=== PATIENT | male | born 1995 | race Two or more races ===

== ENCOUNTER 2017-05-30 00:24 | Emergency (ER) | payer OTHER ==
[~2017-05-30] VITALS: Ht 170.2 cm; Wt 135.2 kg
== END 2017-05-30 13:10 | disposition home or self-care (01) ==
LOC: ER 00:24
DX: R00.2 Palpitations (principal); E03.8 Other specified hypothyroidism; D69.59 Other secondary thrombocytopenia

== ENCOUNTER 2020-10-08 08:31 | Emergency (ER) | payer OTHER ==
[~2020-10-08] VITALS: Ht 172.7 cm; Wt 138.3 kg
[~2020-10-08 08:31] MED LIST: NAPROXEN375 MG PO
[2020-10-08] MEDS ORDERED: LEXAPRO20 MG PO (08:42)
[2020-10-08] MEDS ORDERED: CLONAZEPAM1 MG PO (08:42)
[2020-10-08] MEDS ORDERED: LITHATE5 MG PO (08:42)
[2020-10-08] MEDS ORDERED: ZYPREXA5 MG PO (08:43)
[2020-10-08] MEDS ORDERED: AMBIEN10 MG PO (08:44)
[2020-10-08] MEDS ORDERED: ADDERALL 10 MG10 MG PO (08:44)
[2020-10-08] MEDS ORDERED: AZITHROMYCIN500 MG PO (12:05)
[2020-10-08] MEDS ORDERED: MEDROLPACK PO (12:05)
[2020-10-08] MEDS ORDERED: NAPROXEN375 MG PO (12:05)
[2020-10-08] MEDS ORDERED: MUCINEX DM ER1 EAC1 PO (12:05)
[2020-10-08] MEDS ORDERED: LEVSIN0.125 MG PO (12:08)
[2020-10-08] MEDS ORDERED: LEVALBUTER1.25 MG/3 IH (12:08)
[2020-10-08] MEDS ORDERED: INTESTINEX680 M1 PO (12:12)
== END 2020-10-08 12:15 | disposition home or self-care (01) ==
LOC: ER 08:31
DX: J02.8 Acute pharyngitis due to other specified organisms (principal); R05 Cough; R19.7 Diarrhea, unspecified; J06.9 Acute upper respiratory infection, unspecified; Z20.822 Contact with and (suspected) exposure to COVID-19

== ENCOUNTER 2021-01-31 04:03 | Emergency (ER) | payer OTHER ==
[~2021-01-31] VITALS: Ht 170.2 cm; Wt 131.1 kg
[~2021-01-31 04:03] MED LIST changes: +ADDERALL 10 MG10 MG PO; +AMBIEN10 MG PO; +AZITHROMYCIN500 MG PO; +CLONAZEPAM1 MG PO; +INTESTINEX680 M1 PO; +LEVALBUTER1.25 MG/3 IH; +LEVSIN0.125 MG PO; +LEXAPRO20 MG PO; +LITHATE5 MG PO; +MEDROLPACK PO; +MUCINEX DM ER1 EAC1 PO; +ZYPREXA5 MG PO
[2021-01-31] MEDS ORDERED: ALBUTEROL2.5 MG/3 M IH (07:37)
[2021-01-31] MEDS ORDERED: ZITHROMAX500 MG PO (07:37)
[2021-01-31] MEDS ORDERED: SYMBICORT 16010.2 GM IH (07:37)
[2021-01-31] MEDS ORDERED: ZYNCOF 20-400120 ML PO (07:37)
[2021-01-31] MEDS ORDERED: PROVENTIL HFA6.7 GM IH (07:37)
== END 2021-01-31 07:59 ==
LOC: ER 04:03
DX: R06.02 Shortness of breath (principal); Z20.822 Contact with and (suspected) exposure to COVID-19

== ENCOUNTER 2021-02-13 09:10 | Emergency (ER) | payer OTHER ==
[~2021-02-13] VITALS: Ht 170.2 cm; Wt 129.3 kg
[~2021-02-13 09:10] MED LIST changes: +ALBUTEROL2.5 MG/3 M IH; +PROVENTIL HFA6.7 GM IH; +SYMBICORT 16010.2 GM IH; +ZITHROMAX500 MG PO; +ZYNCOF 20-400120 ML PO
[2021-02-13] MEDS ORDERED: ESKALITH300 MG PO (09:17)
[2021-02-13] MEDS ORDERED: LITHOBID300 M1 PO (09:19)
== END 2021-02-13 13:57 | disposition home or self-care (01) ==
LOC: ER 09:10
DX: K52.89 Other specified noninfective gastroenteritis and colitis (principal); J45.998 Other asthma; Z20.822 Contact with and (suspected) exposure to COVID-19; I10 Essential (primary) hypertension

== ENCOUNTER → 2021-04-18 | Emergency (ER) | payer OTHER ==
[~2021-04-18] VITALS: Ht 170.2 cm; Wt 122.5 kg
[~2021-04-18] MED LIST changes: +ESKALITH300 MG PO; +KETO10TA2 PO; +LITHOBID300 M1 PO
== END | disposition home or self-care (01) ==
LOC: ER 09:57
DX: S51.822A Laceration with foreign body of left forearm, initial encounter (principal); X58.XXXA Exposure to other specified factors, initial encounter; Y93.89 Activity, other specified; Y92.89 Other specified places as the place of occurrence of the external cause; Y99.8 Other external cause status

== ENCOUNTER 2021-06-01 10:18 | Emergency (ER) | payer OTHER ==
[~2021-06-01] VITALS: Ht 172.7 cm; Wt 121.6 kg
[2021-06-01] MEDS ORDERED: CLONAZEPAM2 MG PO (10:37)
[2021-06-01] MEDS ORDERED: ZYPREXA2.5 MG PO (10:38)
[2021-06-01] MEDS ORDERED: ADDERALL 10 MG10 MG PO (10:38)
== END 2021-06-01 12:06 | disposition home or self-care (01) ==
LOC: ER 10:18
DX: J02.9 Acute pharyngitis, unspecified (principal); H60.91 Unspecified otitis externa, right ear

== ENCOUNTER 2021-06-08 01:49 | Emergency (ER) | payer OTHER ==
[~2021-06-08] VITALS: Ht 172.7 cm; Wt 127.0 kg
[~2021-06-08 01:49] MED LIST changes: +CLONAZEPAM2 MG PO; +ZYPREXA2.5 MG PO
[2021-06-08] MEDS ORDERED: KETO10TA2 PO (02:32)
== END 2021-06-08 02:58 | disposition home or self-care (01) ==
LOC: ER 01:49
DX: K08.89 Other specified disorders of teeth and supporting structures (principal)

== ENCOUNTER 2021-09-11 23:26 | Emergency (ER) | payer OTHER ==
[~2021-09-11] VITALS: Ht 170.2 cm; Wt 128.4 kg
[2021-09-11] MEDS ORDERED: PROAIR HFA8.5 GM (23:45)
[2021-09-12] MEDS ORDERED: PHENAGIL TABLE1 EACH PO (02:47)
[2021-09-12] MEDS ORDERED: ZYNCOF 20-400120 ML PO (02:47)
== END 2021-09-12 02:56 | disposition home or self-care (01) ==
LOC: ER 23:26
DX: B34.8 Other viral infections of unspecified site (principal); Z20.828 Contact with and (suspected) exposure to other viral communicable diseases

== ENCOUNTER 2021-11-29 02:58 | Emergency (ER) | payer OTHER ==
[~2021-11-29] VITALS: Ht 170.2 cm; Wt 127.9 kg
[~2021-11-29 02:58] MED LIST changes: +PHENAGIL TABLE1 EACH PO; +PROAIR HFA8.5 GM
== END 2021-11-29 11:36 | disposition home or self-care (01) ==
LOC: ER 02:58
DX: K52.9 Noninfective gastroenteritis and colitis, unspecified (principal); R11.2 Nausea with vomiting, unspecified; Z20.822 Contact with and (suspected) exposure to COVID-19

== ENCOUNTER 2022-01-22 10:18 | Emergency (ER) | payer OTHER ==
[~2022-01-22] VITALS: Ht 170.2 cm; Wt 129.7 kg
== END 2022-01-22 12:06 | disposition home or self-care (01) ==
LOC: ER 10:18
DX: J02.9 Acute pharyngitis, unspecified (principal)

== ENCOUNTER 2024-03-13 20:09 | Emergency (ER) | payer OTHER ==
[~2024-03-13] VITALS: Ht 170.2 cm; Wt 145.6 kg
[~2024-03-13 20:09] MED LIST changes: +PEPCID AC20 MG PO; +ZOFRAN8 MG PO
[2024-03-13 20:35] VITALS: BP 119/76; O2SAT 97
[2024-03-13] MEDS ORDERED: KETOROLAC TROMETHAMINE 30 MG VIAL IV ONE (23:45)
[2024-03-13] MEDS ORDERED: 0.9 % SODIUM CHLORIDE 1,000 ML IV SCH (23:45)
[2024-03-13] MEDS ORDERED: METRONIDAZOLE/SODIUM CHLORIDE 500 MG/100 ML PIGGYBACK IV ONE (23:45)
[2024-03-13] MEDS ORDERED: FAMOTIDINE/PF 20 MG/2 ML VIAL IV PUSH ONE (23:45)
[2024-03-13] MEDS ORDERED: ONDANSETRON HCL 2 MG/ML VIAL IV ONE (23:45)
[2024-03-14] MEDS ORDERED: KETOROLAC TROMETHAMINE 60 MG VIAL IM ONE (00:37)
[2024-03-14] MEDS ORDERED: METRONIDAZOLE/SODIUM CHLORIDE 500 MG/100 ML PIGGYBACK IV ONE (00:37)
[2024-03-14] MEDS ORDERED: ONDANSETRON HCL 2 MG/ML VIAL ONE (00:37)
[2024-03-14] MEDS ORDERED: FAMOTIDINE/PF 20 MG/2 ML VIAL ONE (00:37)
[2024-03-14 02:03] LABS: URINE APPEARANCE Turbid; URINE BILIRRUBIN Small (NEGATIVE); URINE BLOOD Negative; URINE COLOR Dark Yellow; URINE GLUCOSE Negative (NEGATIVE); URINE KETONE Negative (NEGATIVE); URINE LEUKOCYTE Negative; URINE NITRATE Negative; URINE PROTEIN 30 (NEGATIVE)
[2024-03-14 02:04] LABS: HEMATOCRIT 51.2 % (39.0-48.0); HEMOGLOBIN 16.9 g/dL (13-16.00); MEAN CELL VOLUME 81.7 fL (80.0-100.00); MEAN CORPUSCULAR HGB CONC 33.1 g/dl (32.0-36.0); PLATELET COUNT 189 K/uL (150-450); RED BLOOD COUNT 6.27 M/uL (4.00-6.00); RED CELL DISTRIBUTION WIDTH 15.1 % (11.5-14.5)
[2024-03-14 02:06] LABS: URINE RBC 12.9 uL (0.0-20.8); URINE WBC 14.2 uL (0.0-23.2)
[2024-03-14 02:18] LABS: URINE CAST 0.73 uL (0.0-1.40); URINE CRYSTALS MANY /HPF; URINE MUCUS SCANT
== END 2024-03-14 05:50 | disposition home or self-care (01) ==
LOC: ER 20:11
PROVIDERS: Emergency Medicine
DX: R11.10 Vomiting, unspecified (principal); K52.9 Noninfective gastroenteritis and colitis, unspecified

== ENCOUNTER 2024-11-24 17:47 | Emergency (ER) | payer OTHER ==
[~2024-11-24] VITALS: Ht 170.2 cm; Wt 127.0 kg
[2024-11-24 20:14] LABS: BASO % 0.3 % (0.1-1.2); EOS # 0.16 (0.04-0.54); EOS % 2.2 % (0.7-7.0); LYMPH # 1.99 (1.18-3.74); LYMPH % 27.7 % (19.3-53.1); MEAN PLATELET VOLUME 11.60 fl (9.4-12.4); MONO # 0.70 (0.24-0.82); MONO % 9.7 % (4.7-12.5); NEUT # 4.29 (1.56-6.13); NEUT % 59.7 % (34.0-71.1); RED CELL DISTRIBUTION WIDTH 14.7 % (11.6-14.4)
[2024-11-24 20:41] LABS: ALT/SGPT 30.0 U/L (12-78); AST/SGOT 17.0 U/L (15-37); BILIRUBIN TOTAL 0.43 mg/dL (0.3-1.2); BUN CREA RATIO 19.0 (7.0-25.0); CREATININE SERUM 0.97 mg/dL (0.70-1.30); GFR 91.5; GLOBULINA 3.7 G/DL (2.4-3.5); GLUCOSE FASTING 98.0 mg/dL (65-100); OSMOLALITY SERUM 283.0 MOSM/KG (275-295)
[2024-11-24 21:09] LABS: URINE APPEARANCE Clear; URINE BILIRRUBIN Negative (NEGATIVE); URINE BLOOD Negative; URINE COLOR Yellow; URINE GLUCOSE Negative (NEGATIVE); URINE KETONE Trace (NEGATIVE); URINE LEUKOCYTE Small; URINE NITRATE Negative; URINE PROTEIN Negative (NEGATIVE); URINE UROBILINOGEN 1.0 E.U./dl
[2024-11-24 21:12] LABS: URINE BACTERIA 26.3 uL (0.0-1933); URINE EPITHELIAL CELLS 2.6 uL (0.0-38.8); URINE RBC 9.0 uL (0.0-20.8); URINE WBC 56.8 uL (0.0-23.2)
[2024-11-24 21:24] LABS: URINE CAST 0.14 uL (0.0-1.40)
[2024-11-25] MEDS ORDERED: PROCAINE IM ONE (00:30)
[2024-11-25] MEDS ORDERED: BENZ IM ONE (00:30)
[2024-11-25] MEDS ORDERED: KETOROLAC TROMETHAMINE 60 MG VIAL IM ONE ×2 (00:30→01:47)
[2024-11-25] MEDS ORDERED: DISP SYRIN IM ONE (00:30)
[2024-11-25] MEDS ORDERED: [UNRECOGNIZED DRUG - OTHER] IM ONE (00:30)
[2024-11-25] MEDS ORDERED: IBUPROFEN600 MG PO (00:46)
[2024-11-25] MEDS ORDERED: DOXYCYCLINE HY100 MG PO (00:46)
== END 2024-11-25 01:51 | disposition home or self-care (01) ==
LOC: ER 17:47
PROVIDERS: Preventive Medicine Public Health & General Preventive Medicine
DX: A53.9 Syphilis, unspecified (principal); A64 Unspecified sexually transmitted disease